=== PATIENT | female | born 1990 | race Caucasian/White ===

== ENCOUNTER 2017-12-02 17:12 | Emergency (ER) | payer OTHER ==
[~2017-12-02] VITALS: Ht 157.5 cm; Wt 72.7 kg
[2017-12-02] MEDS ORDERED: ABX PO (17:16)
[2017-12-02] MEDS ORDERED: LIDOCAINE HCL/PF 1% 2 ML VIAL IM ONE (17:30)
[2017-12-02] MEDS ORDERED: CefTRIAXone SODIUM 1 GM/VIAL IM ONE (17:30)
[2017-12-02] MEDS ORDERED: DOXYCYCLINE 100 MG CAPSULE PO ONE (17:30)
[2017-12-02 18:16] VITALS: BP 122/72
== END 2017-12-02 18:18 | disposition home or self-care (01) ==
LOC: EMS 17:13
DX: L02.415 Cutaneous abscess of right lower limb (principal)
CPT/HCPCS: 96372; 99283; J0696; J3490